=== PATIENT | female | born 2000 | race Caucasian/White ===

== ENCOUNTER 2019-11-04 20:08 | Emergency (ER) | payer OTHER ==
--- NOTE | 2019-11-05 01:54 | ER Document Report ---
ED ENT - General Chief Complaint: Ear Pain Stated Complaint: EAR ACHE Time Seen by Provider: 11/05/19 01:17 Mode of Arrival: Ambulatory Information source: Patient - HPI Notes: Patient presents with left-sided earache. Patient states she was recently diagnosed with sinusitis and otitis. She states she is currently on cefdinir. She states today she felt a sudden sharp pain in her left ear and heard a pop and was concerned that she may have ruptured her eardrum. Therefore skin emergency room for evaluation. The pain in her ear is constant but does wax and wane in intensity. Nothing makes it better or worse. It does not radiate. Patient has had no fevers. - Related Data Allergies/Adverse Reactions: No Known Allergies Allergy (Verified 11/04/19 21:51) Home Medications: antibiotics. OTC cold medicine Past Medical History - General Information source: Patient - Social History Smoking Status: Current Some Day Smoker Frequency of alcohol use: None Drug Abuse: None Family History: Reviewed & Not Pertinent Patient has suicidal ideation: No Patient has homicidal ideation: No Review of Systems - Review of Systems Constitutional: denies: Chills, Fever Cardiovascular: denies: Chest pain, Palpitations Respiratory: Cough. denies: Short of breath Gastrointestinal: denies: Diarrhea, Vomiting -: Yes All other systems reviewed and negative Physical Exam - Vital signs Vitals: Temp Pulse Resp BP Pulse Ox 99.4 F 77 16 114/65 98 11/04/19 21:17 11/04/19 21:17 11/04/19 21:17 11/04/19 21:17 11/04/19 21:17 - HEENT External canal: Normal Tympanic membrane: Bulging - Left, Injected - Left Nasal: Swelling, Clear rhinorrhea Mouth/Lips: Normal Mucous membranes: Moist Pharynx: Normal Course - Vital Signs Vital signs: Temp Pulse Resp BP Pulse Ox 99.4 F 77 16 114/65 98 11/04/19 21:17 11/04/19 21:17 11/04/19 21:17 11/04/19 21:17 11/04/19 21:17 Discharge - Discharge Clinical Impression: Left serous otitis media Qualifiers: Chronicity: acute Recurrence: non-recurrent Qualified Code(s): H65.02 - Acute serous otitis media, left ear Condition: Stable Disposition: HOME, SELF-CARE Instructions: Serous Otitis Media ([facility]) Prescriptions: Hydrocodone/Acetaminophen [[place] 5-325 mg Tablet] 1 tab PO Q6 PRN 3 Days #12 tablet PRN Reason: Forms: Return to Work Referrals: TRISTAN KHANNA DO [ASSOCIATE] - Follow up as needed
[2019-11-05] MEDS ORDERED: HYDROCODONE/ACETAMINOPHEN 5-325 MG (6 TAB/ER DISP) PO PRN (01:55)
[2019-11-05 02:39] VITALS: BP 121/70
== END 2019-11-05 02:31 | disposition home or self-care (01) ==
LOC: ER 20:08
DX: H65.02 Acute serous otitis media, left ear (principal); H92.02 Otalgia, left ear; F17.200 Nicotine dependence, unspecified, uncomplicated
CPT/HCPCS: 99282